=== PATIENT | female | born 1990 | race Two or more races ===

== ENCOUNTER 2020-03-02 07:58 | Inpatient (IN) | payer MEDICAID ==
[~2020-03-02] VITALS: Ht 172.7 cm; Wt 70.9 kg
[2020-03-16] MEDS ORDERED: FENTANYL PF 100 MCG/2ML IVPush PRN (09:30)
[2020-03-16] MEDS ORDERED: TERBUTALINE 1 MG/ML, 1ML IVPush PRN (09:30)
[2020-03-16] MEDS ORDERED: TERBUTALINE 1 MG/ML, 1ML SQ PRN (09:30)
[2020-03-16] MEDS ORDERED: ONDANSETRON 2MG/ML, 2ML IVPush PRN (09:30)
[2020-03-16] MEDS ORDERED: OXYTOCIN 30U/ 0.9% NaCL 500ML 500 ML IV ONE (09:30)
[2020-03-16] MEDS ORDERED: OXYTOCIN 30U/ 0.9% NaCL 500ML 500 ML IV PRN (09:30)
[2020-03-16] MEDS ORDERED: OXYTOCIN 30U/ 0.9% NaCL 500ML 500 ML ONE (09:35)
[2020-03-16 10:08] LABS: BASOPHILS % (AUTO) 1 % (0-1); EOSINOPHILS % (AUTO) 0 % (1-7); LYMPHOCYTES % (AUTO) 14 % (22-44); MEAN CORPUSCULAR HEMOGLOBIN 30.7 pg (27.0-34.8); MEAN CORPUSCULAR HGB CONC 33.7 g/dL (32.4-35.8); MEAN PLATELET VOLUME 8.8 fL (7.4-10.4); MONOCYTES % (AUTO) 5 % (2-9); NEUTROPHILS % (AUTO) 81 % (42-75); PLATELET COUNT 206 x10^3/uL (130-400); RED BLOOD COUNT 4.64 x10^6/uL (3.82-5.3)
[2020-03-16 10:09] LABS: MD NO
[2020-03-16] MEDS: LACTATED RINGERS 1,000 ML IV SCH ×2 (10:10→18:02)
[2020-03-16] MEDS ORDERED: NEWBORN KIT ONE (11:14)
[2020-03-16] MEDS: D5%-LACTATED RINGERS 1,000 ML IV SCH ×2 (13:15→17:30)
[2020-03-16] MEDS ORDERED: BUPIVACAINE 0.25% ONE (13:47)
[2020-03-16] MEDS ORDERED: FENTANYL/BUPIV./NS/PF 250 ML EPIDCONT ONE (13:47)
[2020-03-16] MEDS ORDERED: LACTATED RINGERS 1,000 ML INTUTE PRN (18:00)
[2020-03-16 19:11] VITALS: BP 118/63
[2020-03-17] MEDS: LACTATED RINGERS 1,000 ML IV SCH ×2 (01:30→09:30)
[2020-03-17] MEDS: D5%-LACTATED RINGERS 1,000 ML IV SCH ×2 (01:30→09:30)
[2020-03-17] MEDS ORDERED: ONDANSETRON 2MG/ML, 2ML IV PRN (05:30)
[2020-03-17] MEDS ORDERED: ACETAMINOPHEN 325 MG TABLET PO PRN ×2 (05:30)
[2020-03-17] MEDS ORDERED: MAGNESIUM HYDROXIDE 8%, 30ML UDC PO PRN (05:30)
[2020-03-17] MEDS ORDERED: CALCIUM CARBONATE 500 MG TAB.CHEW PO PRN (05:30)
[2020-03-17] MEDS ORDERED: OXYcodone/APAP 5/325MG TABLET PO PRN ×2 (05:30)
[2020-03-17] MEDS ORDERED: RHOGAM FROM BLOOD BANK 1 NOTE EA IM/IV ONE (05:30)
[2020-03-17] MEDS ORDERED: DIPH,PERTUSS(ACELL),TET VAC/PF NC IM-VACC PRN (05:30)
[2020-03-17] MEDS ORDERED: SIMETHICONE 80 MG CHEW TAB PO PRN (05:30)
[2020-03-17] MEDS ORDERED: OXYTOCIN 30U/ 0.9% NaCL 500ML 500 ML IV SCH (05:30)
[2020-03-17] MEDS ORDERED: MISOPROSTOL 200 MCG TABLET PR PRN (05:30)
[2020-03-17] MEDS ORDERED: OXYTOCIN 30U/ 0.9% NaCL 500ML 500 ML ONE (05:36)
[2020-03-17] MEDS ORDERED: ONDANSETRON 2MG/ML, 2ML ONE (05:58)
[2020-03-17] MEDS ORDERED: DIPHENHYDRAMINE 50 MG/ML, 1ML IVPush PRN (07:00)
[2020-03-17] MEDS ORDERED: NALOXONE 0.4 MG/ML, 1ML IVPush PRN (07:00)
[2020-03-17] MEDS ORDERED: FENTANYL/BUPIV./NS/PF 250 ML EPIDCONT SCH (07:00)
[2020-03-17] MEDS ORDERED: LACTATED RINGERS 1,000 ML IV SCH (07:00)
[2020-03-17] MEDS ORDERED: ONDANSETRON 2MG/ML, 2ML IVPush PRN (07:00)
[2020-03-17] MEDS ORDERED: LACTATED RINGERS 1,000 ML IVBOLUS PRN (07:00)
[2020-03-17] MEDS ORDERED: EPHEDRINE 50 MG/ML, 1ML IVPush PRN (07:00)
[2020-03-17 07:35] VITALS: BP 123/73
[2020-03-17 12:30] VITALS: BP 111/75
[2020-03-17 13:25] LABS: MEAN CORPUSCULAR HEMOGLOBIN 30.7 pg (27.0-34.8); MEAN CORPUSCULAR HGB CONC 33.5 g/dL (32.4-35.8); MEAN PLATELET VOLUME 8.7 fL (7.4-10.4); PLATELET COUNT 188 x10^3/uL (130-400); RED BLOOD COUNT 4.28 x10^6/uL (3.82-5.3)
[2020-03-17 14:07] LABS: MD YES
[2020-03-17 14:09] LABS: BAND#(MANUAL) 3.49 x10^3/uL; BANDS%(MANUAL) 12 % (0-7); LYMPH#(MANUAL) 0.87 x10^3/uL (1-3.4); LYMPHS% (MANUAL) 3 % (22-44); MONOS#(MANUAL) 0.58 x10^3/uL (0.3-2.7); MONOS% (MANUAL) 2 % (2-9); SEG#(MANUAL) 24.15 x10^3/uL (1.8-6.8); SEGS% (MANUAL) 83 % (42-75)
[2020-03-17 14:13] LABS: <PLATELET ESTIMATE> ADEQUATE; <PLT MORPHOLOGY> NORMAL PLT MORPH; <RBC MORPHOLOGY> NORMAL
[2020-03-17] MEDS: DOCUSATE 100 MG CAPSULE PO PRN (14:38)
[2020-03-17] MEDS: PRENATAL VIT/IRON/FA 1 EACH TABLET PO SCH (14:39)
[2020-03-17] MEDS: IBUPROFEN 600 MG TABLET PO PRN (16:25)
[2020-03-17 16:34] VITALS: BP 109/68
[2020-03-17 20:00] VITALS: BP 107/71
[2020-03-18 01:00] VITALS: BP 111/69
[2020-03-18] MEDS: IBUPROFEN 600 MG TABLET PO PRN ×2 (03:56→09:57)
[2020-03-18 04:30] VITALS: BP 113/76
[2020-03-18] MEDS: DOCUSATE 100 MG CAPSULE PO PRN (07:46)
[2020-03-18] MEDS: PRENATAL VIT/IRON/FA 1 EACH TABLET PO SCH (07:46)
[2020-03-18 07:50] VITALS: BP 117/75
[2020-03-18] MEDS ORDERED: DOCU-131 PO (14:48)
[2020-03-18] MEDS ORDERED: IBUP-1222 PO (14:48)
== END 2020-03-18 16:31 | disposition home or self-care (01) | DRG 807 ==
LOC: LDIP 03-16 09:01 → 2NW 03-17 07:27
PROVIDERS: ADMIT Obstetrics & Gynecology; ATTEND Obstetrics & Gynecology
PROC: 10E0XZZ Delivery of Products of Conception, External Approach (ICD-10-PCS; principal; 2020-03-17)
PROC: 0HQ9XZZ Repair Perineum Skin, External Approach (ICD-10-PCS; 2020-03-17)
PROC: 10H07YZ Insertion of Other Device into Products of Conception, Via Natural or Artificial Opening (ICD-10-PCS; 2020-03-17)
PROC: 3E0R3BZ Introduction of Anesthetic Agent into Spinal Canal, Percutaneous Approach (ICD-10-PCS; 2020-03-17)
PROC: 00HU33Z Insertion of Infusion Device into Spinal Canal, Percutaneous Approach (ICD-10-PCS; 2020-03-17)
DX: O77.0 Labor and delivery complicated by meconium in amniotic fluid (principal); Z37.0 Single live birth; O48.0 Post-term pregnancy; O70.0 First degree perineal laceration during delivery; Z3A.42 42 weeks gestation of pregnancy
CPT/HCPCS: 36415; J7121; 85025; 86592; 86850; 86900; G0378; J2405; J2590; J7120

== ENCOUNTER → 2020-03-12 | Outpatient (CLI) | payer MEDICAID | END | disposition home or self-care (01) | LOC: STAR 14:19 | PROVIDERS: ATTEND Obstetrics & Gynecology | DX: Z01.812 Encounter for preprocedural laboratory examination (principal); Z20.828 Contact with and (suspected) exposure to other viral communicable diseases | CPT/HCPCS: 36415; 87635 ==